=== PATIENT | female | born 1965 | race Caucasian/White ===

== ENCOUNTER 2016-10-23 16:08 | Emergency (ER) | payer OTHER ==
[2016-10-23 16:33] VITALS: BP 149/95; PULSE 98; RESP 18; TEMP 98.1; O2SAT 97
--- NOTE | 2016-10-23 17:04 | DX ---
Chest, PA and Lateral Views, at 4:41 p.m. Clinical History: 51-year-old female with a productive cough for 4 weeks, and an intermittent fever. Comparison Study: None. Findings: The cardiac and mediastinal silhouette is normal in size. There is mild central perihilar b ronchial wall thickening. There is no focal alveolar consolidation, pleural effusion, peripheral inte rstitial edema, or pneumothorax. The osseous structures are age-appropriate. Impression: Mild perihilar bronchitis, without a focal infiltrate.
[2016-10-23] MEDS ORDERED: DEXAMETHASONE 4 MG TAB PO ONE (17:55)
[2016-10-23] MEDS ORDERED: IBUPROFEN 600 MG TAB PO ONE (17:55)
[2016-10-23] MEDS ORDERED: AZITHROMYCIN 250 MG TAB PO ONE (17:56)
--- NOTE | 2016-10-23 18:09 | UCPHY ---
H & P Time Seen by Provider: 10/23/16 17:38 Patient Type: Established HPI/ROS: CHIEF COMPLAINT: Sore throat, ill for 4 weeks HISTORY OF PRESENT ILLNESS: 51-year-old female presents emergency department reporting worsening sore throat pain. Patient states she has had a cough with a mild sore throat, phlegm, headache for almost 4 weeks. Her throat discomfort began to increase last several days. She reports coughing at night and having a significant amount of phlegm the back of her throat. She has been taking Mucinex without much improvement. No fever. No sputum production when she coughs. No history of asthma although she does have an inhaler which she has used in the past for reactive airways disease. No nausea, vomiting, diarrhea, or urinary complaints. No fever, chills, chest pain, shortness of breath, palpitations, vomiting, diarrhea, urinary complaints, headache, lightheadedness. REVIEW OF SYSTEMS: Aside from elements discussed in the HPI, a comprehensive 10-point review of systems was reviewed and is negative. PAST MEDICAL HISTORY: Postmenopausal SOCIAL HISTORY: Nonsmoker. VITAL SIGNS: see nurse's notes. GENERAL: Well-developed, well-nourished, in no acute distress. HEENT: Atraumatic Eyes: PERRL, EOMI, no conjunctival injection. Ears: TM clear bilaterally. Nose: No discharge. Mouth: moist mucous membranes. Pharynx: Enlarged right tonsil, no exudates, positive erythema. No abscess. Uvula is midline. NECK: Supple, right submandibular adenopathy, no meningismus, no tenderness. Negative Kernig's and Brudzinski's. LUNGS: Clear to auscultation bilaterally, no wheezes, rhonchi or rales. CARDIAC: Regular rate and rhythm, no rubs, murmurs or gallops. ABDOMEN: Soft, nontender, nondistended. Benign. BACK: No CVA tenderness. EXTREMITIES: Normal, no edema, FROM. NEURO: Alert and oriented, grossly nonfocal. SKIN: Warm and dry, no rash. PSYCHIATRIC: Normal mentation, no agitation. Smoking Status: Never smoked Constitutional: Initial Vital Signs Temperature (C) 36.7 C 10/23/16 16:31 Heart Rate 98 10/23/16 16:31 Respiratory Rate 18 10/23/16 16:31 Blood Pressure 149/95 H 10/23/16 16:31 O2 Sat (%) 97 10/23/16 16:31 O2 Delivery Mode Room Air Allergies/Adverse Reactions: Cephalosporins Allergy (Intermediate, Verified 12/10/15 19:02) Vomiting Penicillins Allergy (Intermediate, Verified 12/10/15 19:02) Hives sulfamethoxazole [From Bactrim] Allergy (Intermediate, Verified 12/10/15 19:02) Hives trimethoprim [From Bactrim] Allergy (Intermediate, Verified 12/10/15 19:02) Hives Home Medications: Medication Instructions Recorded Albuterol [Proventil Inhaler HFA 1 - 2 puffs IH Q4H #1 mdi 10/23/16 (*)] Azithromycin [Zithromax] 250 mg PO DAILY #4 tab 10/23/16 HYDROcodone/HOMATROPINE HYCODA 1 tsp PO Q4-6PRN PRN #120 ml 10/23/16 [Hycodan Syrup (*)] Mucinex 10/23/16 Medical Decision Making ED Course/Re-evaluation: 51-year-old female presenting to the emergency department with 4 weeks of ongoing, waxing and waning, upper respiratory infection symptoms. She has been experiencing worsening sore throat discomfort over the last several days. Examination demonstrates enlarged right tonsil with exudate. Patient also has a cough that has been keeping her awake at night. She was placed on azithromycin. She was advised to drink plenty of fluids and get plenty of rest. She was also giving an albuterol meter dose inhaler to use for nighttime cough and was prescribed Hycodan cough syrup. Patient strep screen and influenza tests were negative. Differential Diagnosis: Differential diagnosis of the patient's symptom complex was considered including but not limited to viral upper respiratory infection, viral pharyngitis, strep pharyngitis, bacterial pharyngitis, peritonsillar abscess, tonsillitis, epiglottitis, influenza, and mononucleosis. - Data Points Laboratory Results: 10/23/16 10/23/16 Unknown 16:34 Influenza Typ A,B (DFA) NEGATIVE FOR FLU (NEGATIVE) Group A Strep Screen NEGATIVE (NEGATIVE) Group A Strep DNA Pending Medications Given: Discontinued Medications Azithromycin (Zithromax) 500 mg PO EDNOW ONE PRN Reason: Protocol Stop: 10/23/16 17:57 Last Admin: 10/23/16 18:00 Dose: 500 mg Dexamethasone (Decadron) 8 mg PO EDNOW ONE Stop: 10/23/16 17:56 Last Admin: 10/23/16 18:00 Dose: 8 mg Ibuprofen (Motrin) 600 mg PO EDNOW ONE Stop: 10/23/16 17:56 Last Admin: 10/23/16 18:00 Dose: 600 mg Departure - Departure Disposition: Home, Routine, Self-Care Clinical Impression: Tonsillitis Pharyngitis Qualifiers: Pharyngitis/tonsillitis etiology: other specified organisms Qualifier Code: ( J02.8) Acute pharyngitis due to other specified organisms Condition: Good Instructions: Tonsillitis (ED), Cold Symptoms (ED) Additional Instructions: 1. Please take the antibiotic as directed. 2. I recommend Ibuprofen (Motrin, Advil) or Naproxen Sodium (Aleve) for throat pain and anti-inflammatory effects. You may take either one, but do not take both. Your dose is: Ibuprofen 600 mg every 6-8 hours with food. OR Naproxen Sodium (Aleve) 220 mg every 12 hours. 3. Please consider using your meter dose inhaler for coughing especially at night. 4. You been given a prescription for Hycodan cough suppressant. You may use this at night. 5. Please drink plenty of fluids and get plenty of rest. Follow up with the primary care physician if you're not improving as expected with these treatments. Your rapid strep screen is negative. Your influenza is negative. Referrals: Catherine Gomez MD [Primary Care Provider] - As per Instructions Prescriptions: HYDROcodone/HOMATROPINE HYCODA [Hycodan Syrup (*)] 1 tsp PO Q4-6PRN PRN #120 ml PRN Reason: cough, pain Albuterol [Proventil Inhaler HFA (*)] 1 - 2 puffs IH Q4H #1 mdi Azithromycin [Zithromax] 250 mg PO DAILY #4 tab - PQRS PQRS Measurement: Not applicable
== END 2016-10-23 18:05 | disposition home or self-care (01) ==
LOC: CED 16:08
DX: J03.90 Acute tonsillitis, unspecified (principal)
CPT/HCPCS: 71020-PO; 87400-PO; 87880-PO; 99214-PO; G0463-PO

== ENCOUNTER 2018-06-21 16:27 | Emergency (ER) | payer OTHER ==
[2018-06-21] MEDS ORDERED: NS 1,000 ML IV ONE (16:45)
[2018-06-21] MEDS ORDERED: fentaNYL 100 MCG/2 ML INJ IVP ONE (16:45)
--- NOTE | 2018-06-21 17:10 | EDPHY ---
H & P Stated Complaint: " I might have a kidney stone." Time Seen by Provider: 06/21/18 16:34 HPI/ROS: CHIEF COMPLAINT: Right flank pain and mild right upper quadrant pain HISTORY OF PRESENT ILLNESS: This is a 53-year-old female states she was not feeling well last night. Her stomach was bothering her. She has a history of what she describes as irritable bowel disease with intermittent episodes of some right lower quadrant discomfort. She was not nauseous and had no vomiting last night. When she woke this morning she was having pain in the right flank area. Pain does not radiate into the groin. Does not radiate to the right lower quadrant, she has had no nausea or vomiting. No fever. She does report some discomfort when she takes a deep breath and also some discomfort in the right upper quadrant. She went to an urgent care, and they dipped her urine and told her there was blood and suggested that perhaps she was having a kidney stone. Patient has not had a history of kidney stones in the past. She has not had any urinary complaints such as urgency, frequency, or dysuria. No nausea or vomiting. Pain is not pleuritic. No cold or cough symptoms. Taking a deep breath actually sometimes alleviates the discomfort. Pain is worse with some movements. Does not radiate into her legs. She does have a history of back pain and reports this does not feel similar to her musculoskeletal back pain. No fever, chills, chest pain, shortness of breath, palpitations, vomiting, diarrhea, urinary complaints, headache, lightheadedness. REVIEW OF SYSTEMS: A comprehensive 10 system review of systems was reviewed and is otherwise negative aside from elements mentioned in the history of present illness. PAST MEDICAL HISTORY: "Irritable bowel". No pulmonary history. SOCIAL HISTORY: Here with her . Nonsmoker. VITAL SIGNS Reviewed by me. GENERAL: Well-developed, well-nourished, looks well. Some discomfort when she has to sit on the gurney or move about. HEENT: Atraumatic. Eyes: No icterus, no injection. Mouth: moist mucous membranes. No erythema or lesions. Neck: supple with no adenopathy. LUNGS: Clear to auscultation bilaterally, no wheezes, rhonchi or rales. CARDIAC: Regular rate and rhythm, no rubs, murmurs or gallops. ABDOMEN: Soft, very mild right upper quadrant discomfort to palpation. No guarding. Nondistended. Normal bowel sounds. BACK: Slight right CVA tenderness to deep palpation. No rash noted. EXTREMITIES: No trauma. No edema. Range of motion is normal throughout. NEURO: Alert and oriented, grossly nonfocal. SKIN: Warm and dry, no rash. PSYCHIATRIC: Normal mentation, no agitation. - Personal History LMP (Females 10-55): Post Menopausal Current Tetanus/Diphtheria Vaccine: Yes Current Tetanus Diphtheria and Acellular Pertussis (TDAP): Yes - Medical/Surgical History Hx Asthma: Yes Hx Chronic Respiratory Disease: No Hx Diabetes: No Hx Cardiac Disease: No Hx Renal Disease: No Hx Cirrhosis: No Hx Alcoholism: No Hx HIV/AIDS: No Hx Splenectomy or Spleen Trauma: No Other PMH: HTN, shingles, asthma, l hip problems - Social History Smoking Status: Never smoked Constitutional: Initial Vital Signs Temperature (C) 36.6 C 06/21/18 16:30 Heart Rate 90 06/21/18 16:30 Respiratory Rate 13 06/21/18 16:30 Blood Pressure 156/82 H 06/21/18 16:30 O2 Sat (%) 98 06/21/18 16:30 O2 Delivery Mode Room Air O2 (L/minute) 2 Allergies/Adverse Reactions: Cephalosporins Allergy (Intermediate, Verified 12/10/15 19:02) Vomiting Penicillins Allergy (Intermediate, Verified 12/10/15 19:02) Hives sulfamethoxazole [From Bactrim] Allergy (Intermediate, Verified 12/10/15 19:02) Hives trimethoprim [From Bactrim] Allergy (Intermediate, Verified 12/10/15 19:02) Hives Home Medications: Medication Instructions Recorded Albuterol [Proventil Inhaler HFA 1 - 2 puffs IH Q4H #1 mdi 10/23/16 (*)] Lisinopril 06/21/18 Medical Decision Making - Diagnostics Imaging Results: Imaging Impressions Abdomen/Pelvis CT 06/21/18 17:13 Impression: 1. No acute abdominopelvic process. 2. Severe fatty liver. 3. Mild heterogeneity of the gallbladder which is nondistended and which may represent small stones. 4. Degenerative changes of the left hip. 5. Colonic diverticulosis. Findings and recommendations discussed with Patt Riggs MD at 1759 hour, . ED Course/Re-evaluation: 53-year-old female presents reporting right upper quadrant abdominal discomfort , mild, and significant right flank discomfort. Patient was seen at Urgent Care reported that she had blood in her urine. There is a question whether not she has a kidney stone. Patient's point of care testing demonstrated largely unremarkable chemistries with the exception of a slightly elevated AST. Urinalysis demonstrates 2+ blood and 2+ leukocyte esterase. Microscopic is pending at the time of this discussion. CT scan without IV contrast: No kidney stone seen. No gallstones are visualized, although the patient has a fatty liver and contracted gallbladder. Patient was reexamined at 6:15 p.m.. Her pain has improved with the fentanyl. She received Toradol 30 mg IV. We discussed further evaluation to include ultrasound. Patient is comfortable following up for an outpatient ultrasound to rule out potential biliary colic. She does describe this pain occurring previously in the past. We also discussed possibility of constipation versus muscle spasm. Patient will follow up with her primary care physician. I advised her that the urine microscopic is pending at this time and will contact her if there are signs of an infection. Plan to discharge the patient with Flexeril for muscle spasm, instructions regarding constipation, and follow up with the primary care physician to consider ultrasound testing. Patient and her are comfortable with this plan. I believe this is a reasonable plan. Patient's only does not have an acute abdomen, no signs of kidney stone, sepsis, significant infectious process, or cholecystitis. Note: 9:30 p.m.: Patient's urine microscopic is available in demonstrates 15- 25 white cells per high-power field, trace epithelial cells, trace bacteria, and calcium oxalate crystals. I discussed this with the patient. On the patients CT scan and we can see no definitive stone or hydronephrosis. I encourage the patient to stay well-hydrated. She is allergic to a number of antibiotics and we have decided that we will wait until the culture results are available in order to treat the patient. She will call back to the emergency department at [phone] in 24 hours. I did encourage her to drink plenty of fluid, get plenty of rest, and return to the emergency department if her pain was worsening or if she develops a fever. Differential Diagnosis: Differential diagnosis for the patient's upper abdominal pain was considered including but not limited to cholecystitis, gastritis, peptic ulcers disease, and pancreatitis. Differential diagnosis of the patient's flank pain was considered including but not limited to musculoskeletal causes, kidney stone, pyelonephritis, shingles, and intra-abdominal causes such as diverticulitis and appendicitis. - Data Points Laboratory Results: Laboratory Results 06/21/18 17:02 06/21/18 06/21/18 06/21/18 17:50 17:08 17:02 WBC RBC Hgb POC Hgb 12.6 gm/dL gm/dL (12.6-16.3) Hct POC Hct 37 % L % (38-47) MCV MCH MCHC RDW Plt Count MPV Neut % (Auto) Lymph % (Auto) Wilkin % (Auto) Eos % (Auto) Baso % (Auto) Nucleat RBC Rel Count Absolute Neuts (auto) Absolute Lymphs (auto) Absolute Monos (auto) Absolute Eos (auto) Absolute Basos (auto) Absolute Nucleated RBC Immature Gran % Immature Gran # POC Sodium 142 mEq/L mEq/L (135-145) POC Potassium 4.0 mEq/L mEq/L (3.3-5.0) POC Chloride 107 mEq/L mEq/L (97-110) POC BUN 19 mg/dL mg/dL (7-23) POC Creatinine 0.8 mg/dL mg/dL (0.6-1.0) POC Glucose 99 mg/dL mg/dL (70-100) POC Total Bilirubin 0.5 mg/dL mg/dL (0.1-1.4) POC GGT 27 IU/L IU/L (5-65) POC AST 48 IU/L H IU/L (14-46) POC ALT 39 IU/L IU/L (9-52) POC Alk Phosphatase 69 IU/L IU/L (38-126) POC Total Protein 6.7 g/dL g/dL (6.3-8.2) POC Albumin 3.7 g/dL g/dL (3.5-5.0) POC Amylase 42 IU/L IU/L (30-110) Lipase 117 IU/L IU/L (23-300) Urine Color Urine Appearance Urine pH Ur Specific [place] Urine Protein Urine Ketones Urine Blood Urine Nitrate Urine Bilirubin Urine Urobilinogen Ur Leukocyte Esterase Urine RBC Urine WBC Ur Epithelial Cells Calcium Oxalate Crystal Urine Bacteria Urine Mucus Urine Glucose 06/21/18 06/21/18 17:02 17:02 WBC 7.26 10^3/uL 10^3/uL (3.80-9.50) RBC 5.25 10^6/uL 10^6/uL (4.18-5.33) Hgb 14.1 g/dL g/dL (12.6-16.3) POC Hgb Hct 43.6 % % (38.0-47.0) POC Hct MCV 83.0 fL fL (81.5-99.8) MCH 26.9 pg L pg (27.9-34.1) MCHC 32.3 g/dL L g/dL (32.4-36.7) RDW 13.9 % % (11.5-15.2) Plt Count 267 10^3/uL 10^3/uL (150-400) MPV 9.9 fL fL (8.7-11.7) Neut % (Auto) 63.1 % % (39.3-74.2) Lymph % (Auto) 25.1 % % (15.0-45.0) Wilkin % (Auto) 9.2 % % (4.5-13.0) Eos % (Auto) 1.7 % % (0.6-7.6) Baso % (Auto) 0.6 % % (0.3-1.7) Nucleat RBC Rel Count 0.0 % % (0.0-0.2) Absolute Neuts (auto) 4.59 10^3/uL 10^3/uL (1.70-6.50) Absolute Lymphs (auto) 1.82 10^3/uL 10^3/uL (1.00-3.00) Absolute Monos (auto) 0.67 10^3/uL 10^3/uL (0.30-0.80) Absolute Eos (auto) 0.12 10^3/uL 10^3/uL (0.03-0.40) Absolute Basos (auto) 0.04 10^3/uL 10^3/uL (0.02-0.10) Absolute Nucleated RBC 0.00 10^3/uL 10^3/uL (0-0.01) Immature Gran % 0.3 % % (0.0-1.1) Immature Gran # 0.02 10^3/uL 10^3/uL (0.00-0.10) POC Sodium POC Potassium POC Chloride POC BUN POC Creatinine POC Glucose POC Total Bilirubin POC GGT POC AST POC ALT POC Alk Phosphatase POC Total Protein POC Albumin POC Amylase Lipase Urine Color YELLOW Urine Appearance HAZY Urine pH 6.0 (5.0-7.5) Ur Specific [place] 1.027 (1.002-1.030) Urine Protein NEGATIVE (NEGATIVE) Urine Ketones NEGATIVE (NEGATIVE) Urine Blood 1+ H (NEGATIVE) Urine Nitrate NEGATIVE (NEGATIVE) Urine Bilirubin NEGATIVE (NEGATIVE) Urine Urobilinogen NEGATIVE EU EU (0.2-1.0) Ur Leukocyte Esterase 2+ H (NEGATIVE) Urine RBC 1-3 /hpf /hpf (0-3) Urine WBC 15-25 /hpf H /hpf (0-3) Ur Epithelial Cells TRACE /lpf /lpf (NONE-1+) Calcium Oxalate Crystal PRESENT /hpf /hpf (NONE-1+) Urine Bacteria TRACE /hpf H /hpf (NONE SEEN) Urine Mucus TRACE /lpf /lpf (NONE-1+) Urine Glucose NEGATIVE (NEGATIVE) Medications Given: Discontinued Medications Hydrocodone Bitart/Acetaminophen ([place] 5/325mg Prepack#6) 1 btl TAKEHOME EDNOW ONE Stop: 06/21/18 18:26 Last Admin: 06/21/18 18:37 Dose: 1 btl Cyclobenzaprine HCl (Flexeril 10 Mg Prepack#3) 1 btl TAKEHOME EDNOW ONE Stop: 06/21/18 18:26 Last Admin: 06/21/18 18:42 Dose: 1 btl Fentanyl (Sublimaze) 50 mcg IVP EDNOW ONE Stop: 06/21/18 16:46 Last Admin: 06/21/18 17:04 Dose: 50 mcg Sodium Chloride (Ns) 1,000 mls @ 0 mls/hr IV ONCE ONE; Wide Open PRN Reason: Protocol Stop: 06/21/18 16:46 Last Admin: 06/21/18 17:04 Dose: 1,000 mls Ketorolac Tromethamine (Toradol) 30 mg IVP EDNOW ONE Stop: 06/21/18 18:05 Last Admin: 06/21/18 18:09 Dose: 30 mg Point of Care Test Results: Chemistry 06/21/18 06/21/18 17:50 17:08 POC Sodium 142 mEq/L mEq/L (135-145) POC Potassium 4.0 mEq/L mEq/L (3.3-5.0) POC Chloride 107 mEq/L mEq/L (97-110) POC BUN 19 mg/dL mg/dL (7-23) POC Creatinine 0.8 mg/dL mg/dL (0.6-1.0) POC Glucose 99 mg/dL mg/dL (70-100) POC Total Bilirubin 0.5 mg/dL mg/dL (0.1-1.4) POC GGT 27 IU/L IU/L (5-65) POC AST 48 IU/L H IU/L (14-46) POC ALT 39 IU/L IU/L (9-52) POC Alk Phosphatase 69 IU/L IU/L (38-126) POC Total Protein 6.7 g/dL g/dL (6.3-8.2) POC Albumin 3.7 g/dL g/dL (3.5-5.0) POC Amylase 42 IU/L IU/L (30-110) ISTAT H&H 06/21/18 17:50 POC Hgb 12.6 gm/dL gm/dL (12.6-16.3) POC Hct 37 % L % (38-47) Urine Dip Collection Date 06/21/18 Collection Time 16:50 Specific [place] (1.002-1.030) 1.025 PH (5.0-7.5) 6.0 Leukocytes (Negative) 1+ Nitrites (Negative) Negative Protein (Negative) Negative Glucose (Negative) Negative Ketones (Negative) Negative Urobilnogen (0.2-1.0 EU) 0.2 Bilirubin (Negative) Negative Blood (Negative) 2+ Departure - Departure Disposition: Home, Routine, Self-Care Clinical Impression: Flank pain, Right upper quadrant pain Condition: Good Instructions: Hydrocodone/Acetaminophen (By mouth), Cyclobenzaprine (By mouth) , Constipation (ED), Flank Pain (ED) Additional Instructions: 1. You're urine microscopic examination is pending. We will contact you if there are signs of infection in your kidney. 2. I recommend that you follow up with her primary care physician and consider an ultrasound to evaluate for potential gallstone disease. 3. For your flank pain I suggest trying Flexeril, a muscle relaxant. 4. For the abdominal discomfort, I recommend beginning irregular regiment of laxatives to ensure no constipation. 5. For generalized discomfort, you may take Tylenol 1000 mg every 8 hr and ibuprofen 600 mg every 8 hr. You may take both of these at the same time. 6. For significant abdominal discomfort, you been given a prepack of hydrocodone. Please take 1 tablet every 6-8 hours. Please be aware that this contains Tylenol. Referrals: Catherine Gomez MD [Primary Care Provider] - As per Instructions
[2018-06-21] MEDS ORDERED: KETOROLAC 30 MG/1 ML SDV IVP ONE (18:04)
[2018-06-21] MEDS ORDERED: CYCLOBENZAPRINE 10MG PREPACK#3 BTL TAKEHOME ONE (18:25)
[2018-06-21] MEDS ORDERED: HYDROCOD/APAP 5/325 PREPACK#6 BTL TAKEHOME ONE (18:25)
[2018-06-21 18:47] VITALS: BP 120/75
[2018-06-21 19:09] LABS: PLATELET COUNT 267 10^3/uL (150-400)
== END 2018-06-21 18:49 | disposition home or self-care (01) ==
LOC: CED 16:27
DX: R10.11 Right upper quadrant pain (principal); E86.9 Volume depletion, unspecified; I10 Essential (primary) hypertension; J45.909 Unspecified asthma, uncomplicated
CPT/HCPCS: 74176-PO; 80076-PO; 82150-PO; 82435-PO; 82565-PO; 82947-PO; 84132-PO; 84295-PO; 84520-PO; 85014-PO; 96374; J1885; J3010

== ENCOUNTER 2018-10-02 07:55 | Inpatient (IN) | payer OTHER ==
--- NOTE | 2018-10-02 06:41 | PDHPUP ---
History & Physical Update H&P update statement: This history and physical update is based on an assessment of the patient which was completed after admission or registration (within 24 hours), but prior to the surgery/procedure. H&P update: H&P reviewed & patient examined, no change in patient's condition since H&P completed
[~2018-10-02 07:55] MED LIST: ROPIVACAINE 0.2% 80 MG, EPINEPHrine 0.2 MG, KETOROLAC TROMETHAMINE 30 MG in SYRINGE 0 ML IU ONE; TRANEXAMIC ACID 3,000 MG in NS (SYRINGE) 50 ML IRR ONE; TRANEXAMIC ACID 3,000 MG/50 ML BAG IRR ONE
[2018-10-02] MEDS ORDERED: ACETAMINOPHEN 325 MG TAB PO ONE (08:05)
[2018-10-02] MEDS ORDERED: FAMOTIDINE 20 MG TAB PO ONE (08:05)
[2018-10-02] MEDS ORDERED: LR 1,000 ML IV ONE (08:05)
[2018-10-02] MEDS ORDERED: LIDOCAINE 1% 2 ML INJ ID PRN (08:05)
[2018-10-02] MEDS ORDERED: DEXAMETHASONE 4 MG/ML VIAL IVP ONE (08:05)
[2018-10-02] MEDS ORDERED: ceFAZolin 2 GM/DEXTROSE 100 ML IV ONE (08:05)
[2018-10-02] MEDS ORDERED: LIDOCAINE 2% 100 MG/5 ML SYR ONE (08:48)
[2018-10-02] MEDS ORDERED: fentaNYL 100 MCG/2 ML INJ ONE ×2 (08:48→10:29)
[2018-10-02] MEDS ORDERED: PHENYLEPHRINE HCL 100 MCG/ML SYR ONE (08:48)
[2018-10-02] MEDS ORDERED: BUPIVACAINE/DEXTROSE 7.5MG/ML 2 ML SPINAL AMP SP ONE (08:48)
[2018-10-02] MEDS ORDERED: PROPOFOL/EMULSION 500 MG/50 ML BOTTLE IV ONE ×2 (08:48→11:03)
--- NOTE | 2018-10-02 09:00 | PDANEPAE ---
ANE History of Present Illness Left hip DJD, here for L REINALDO ANE Past Medical History - Cardiovascular History Hx Hypertension: Yes Hx Arrhythmias: No Hx Chest Pain: No Hx Coronary Artery / Peripheral Vascular Disease: No Hx CHF / Valvular Disease: No Hx Palpitations: No - Pulmonary History Hx COPD: No Hx Asthma/Reactive Airway Disease: No Hx Recent Upper Respiratory Infection: No Hx Oxygen in Use at Home: No Hx Sleep Apnea: No Sleep Apnea Screening Result - Last Documented: Negative Pulmonary History Comment: occasional mild asthma symptoms when is out in the cold - Neurologic History Hx Cerebrovascular Accident: No Hx Seizures: No Hx Dementia: No - Endocrine History Hx Diabetes: No Endocrine History Comment: had been on thyroid medication but has not taken for about 5 years - Renal History Hx Renal Disorders: No - Liver History Hx Hepatic Disorders: No - Neurological & Psychiatric Hx Hx Neurological and Psychiatric Disorders: No - Cancer History Hx Cancer: No - Congenital Disorder History Hx Congenital Disorders: No - GI History Hx Gastrointestinal Disorders: Yes Gastrointestinal History Comment: eats gluten free due to hx of irritable bowel - Other Health History Other Health History: wears glasses. wears a crack off person for teeth grinding - Chronic Pain History Chronic Pain: Yes (left hip and leg) - Surgical History Prior Surgeries: uterine fibroid removal. fibroid removal right breast. wisdom teeth extraction. colonoscopy ANE Review of Systems Review of Systems: - Exercise capacity METS (RN): 4 METS ANE Patient History - Allergies Allergies/Adverse Reactions: Cephalosporins Allergy (Verified 09/16/18 16:41) Vomiting latex Allergy (Verified 09/16/18 16:41) itching, reddness, skin irritation Penicillins Allergy (Verified 10/02/18 08:24) Hives Sulfa (Sulfonamide Antibiotics) Allergy (Verified 09/16/18 16:41) hives and itching - Home Medications Home Medications: Losartan Potassium [Cozaar 50 mg (*)] 100 mg PO DAILY20 09/11/18 [Last Taken 09/08] - NPO status NPO Since - Liquids (Date): 10/02/18 NPO Since - Liquids (Time): 07:00 NPO Since - Solids (Date): 10/01/18 NPO Since - Solids (Time): 22:00 - Smoking Hx Smoking Status: Never smoked - Family Anes Hx Family Hx Anesthesia Complications: none ANE Labs/Vital Signs - Vital Signs Blood Pressure: 123/73 Heart Rate: 77 Respiratory Rate: 18 O2 Sat (%): 95 Height: 162.56 cm Weight: 90.718 kg ANE Physical Exam - Airway Neck exam: FROM Mallampati Score: Class 2 Mouth exam: normal dental/mouth exam - Pulmonary Pulmonary: no respiratory distress - Cardiovascular Cardiovascular: regular rate and rhythym - ASA Status ASA Status: II ANE Anesthesia Plan Anesthesia Plan: GA with mask, spinal Total IV Anesthesia: Yes
[2018-10-02] MEDS ORDERED: MIDAZOLAM 2 MG/2 ML VIAL IVP ONE (09:49)
[2018-10-02] MEDS ORDERED: MIDAZOLAM 2 MG/2 ML VIAL ONE (09:51)
[2018-10-02] MEDS ORDERED: fentaNYL 100 MCG/2 ML INJ IVP PRN (11:13)
[2018-10-02] MEDS ORDERED: NALOXONE HCL 0.4 MG/ML INJ IVP PRN (11:13)
[2018-10-02] MEDS ORDERED: ACETAMINOPHEN 500 MG TAB PO PRN (11:13)
[2018-10-02] MEDS ORDERED: LR 500 ML IV PRN (11:13)
[2018-10-02] MEDS ORDERED: PROMETHAZINE HCL 25 MG/ML INJ IVP PRN ×2 (11:13→11:38)
[2018-10-02] MEDS ORDERED: ONDANSETRON 4 MG/2 ML VIAL IVP PRN ×2 (11:13→11:38)
[2018-10-02] MEDS ORDERED: MEPERIDINE 25 MG/0.5 ML AMP IVP PRN (11:13)
[2018-10-02] MEDS ORDERED: DIAZEPAM 5 MG/ML 1 ML SYR IVP PRN (11:13)
[2018-10-02] MEDS ORDERED: ALBUTEROL 3 ML DEYVIAL IH PRN (11:13)
[2018-10-02] MEDS ORDERED: HYDROmorphONE/DILAUDID 2 MG/ML INJ IVP PRN (11:13)
[2018-10-02] MEDS ORDERED: oxyCODONE IR 5 MG TAB PO PRN (11:13)
[2018-10-02] MEDS ORDERED: TEMAZEPAM 15 MG CAP PO PRN (11:38)
[2018-10-02] MEDS ORDERED: POLYETHYLENE GLYCOL 3350 17 GM PKT PO PRN (11:38)
[2018-10-02] MEDS ORDERED: METOCLOPRAMIDE 10 MG/2 ML VIAL IVP PRN (11:38)
[2018-10-02] MEDS ORDERED: DIPHENOXYLATE/ATROPINE LOMOTIL 1 TAB PO PRN (11:38)
[2018-10-02] MEDS ORDERED: MAGNESIUM HYDROXIDE 30 ML UDCUP PO PRN (11:38)
[2018-10-02] MEDS ORDERED: BISACODYL 10 MG SUPP PR PRN (11:38)
[2018-10-02] MEDS ORDERED: ONDANSETRON DISINTEGRATING 4 MG TAB PO PRN (11:38)
[2018-10-02] MEDS ORDERED: LACTULOSE 20 GM/30 ML UDCUP PO PRN (11:38)
[2018-10-02] MEDS ORDERED: PROMETHAZINE HCL 25 MG SUPPR PR PRN (11:38)
[2018-10-02] MEDS ORDERED: diphenhydrAMINE 25 MG CAP PO PRN (11:38)
--- NOTE | 2018-10-02 11:38 | POSTOPPROG ---
Post Op Note Date of Operation: 10/02/18 Surgeon: Steve Azul Intermediate Designer: jeison azul PA-C Anesthesiologist: dr. torres Anesthesia: Spinal Pre-op Diagnosis: left hip OA Post-op Diagnosis: same Indication: left hip pain Procedure: L REINALDO ant approach Findings: severe hip OA Inf/Abcess present in the surg proc area at time of surgery?: No EBL: 100-500
[2018-10-02] MEDS ORDERED: LR 1,000 ML IV SCH (12:00)
--- NOTE | 2018-10-02 12:09 | PDMN ---
Medical Necessity Medical necessity: Pt meets inpt criteria per MD order and [facility] S-560, Hip Arthroplasty, [facility] inpt only list. 53 y/o w/L hip OA, admitted for L REINALDO, ant approach, and post-op care.
[2018-10-02] MEDS: CYCLOBENZAPRINE 10 MG TAB PO PRN ×2 (12:34→23:25)
[2018-10-02] MEDS: oxyCODONE IR 5 MG TAB PO PRN ×4 (12:35→23:25)
[2018-10-02] MEDS: ACETAMINOPHEN 325 MG TAB PO SCH ×3 (12:35→23:24)
--- NOTE | 2018-10-02 14:36 | POSTANESTH ---
Post Anesthetic Evaluation Cardiovascular Status: Normal, Stable Respiratory Status: Normal, Stable Level of Consciousness/Mental Status: Can Participate in Eval Pain Control: Adequate, Prn Tx Ordered Nausea/Vomiting Control: Adequate, Prn Tx Ordered Complications Possibly Related to Anesthesia: None Noted (Moving bilateral lower extremeties and no questions or complaints)
[2018-10-02] MEDS: ceFAZolin 2 GM/DEXTROSE 100 ML IV SCH (17:54)
[2018-10-02] MEDS ORDERED: LOSARTAN POTASSIUM 50 MG TAB PO SCH (20:00)
[2018-10-02] MEDS: FAMOTIDINE 20 MG TAB PO SCH (20:26)
[2018-10-02] MEDS: ASPIRIN 81 MG CHEWABLE TAB PO SCH (20:26)
[2018-10-02] MEDS: SENNOSIDES/DOCUSATE SODIUM TAB PO SCH (20:26)
[2018-10-03] MEDS: ceFAZolin 2 GM/DEXTROSE 100 ML IV SCH (01:54)
[2018-10-03] MEDS: oxyCODONE IR 5 MG TAB PO PRN ×3 (05:27→12:59)
[2018-10-03] MEDS: ACETAMINOPHEN 325 MG TAB PO SCH ×2 (06:38→12:59)
--- NOTE | 2018-10-03 08:36 | SOAPPROG ---
SOAP Progress Note Assessment/Plan: Assessment: Patient is doing well POD 1 s/p L REINALDO Pain management: pain is well controlled on oral pain meds. VTE ppx: recommend aspirin 81 mg BID for 4 weeks, cont JESUS and SCDs Anemia: level is expected initially postop. Asymptomatic. Continue to monitor D/c planning: Patient has done better than anticipated and would like to be discharged to home today. Patient must be released from PT before discharge to home. postop urinary retention: straight cath'd yesterday, resolved today. Plan: 10/03/18 08:36 Subjective: Dayna is doing well today, denies SOB ,chest pain and n/v Objective: Vital Signs Temp Pulse Resp BP Pulse Ox 36.7 C 76 17 104/66 97 10/03/18 07:38 10/03/18 07:38 10/03/18 07:38 10/03/18 07:38 10/03/18 07:38 Laboratory Results 10/03/18 04:46 10/02/18 10/03/18 10/04/18 05:59 05:59 05:59 Intake Total 3825 Output Total 3400 500 Balance 425 -500 LLE: incision dressing is clean and dry, NVI, +pf/df ICD10 Worksheet Patient Problems: Problems Problem Status Onset Primary localized osteoarthritis of left hip Acute Tonsillitis Acute
--- NOTE | 2018-10-03 09:11 | GDS ---
DATE OF ADMISSION: 10/02/2018 ADMISSION DIAGNOSIS: Left hip osteoarthritis. DISCHARGE DIAGNOSIS: Left hip osteoarthritis. PROCEDURE: Left total hip arthroplasty. VTE PROPHYLAXIS: Recommend aspirin 81 mg p.o. daily for 4 weeks. BRIEF DESCRIPTION OF HOSPITAL STAY: Patient was admitted for an elective joint arthroplasty. The pa tamie tolerated the procedure well and has passed physical therapy. The patient was given appropriat e antibiotic prophylaxis and venous thromboembolism prophylaxis. The patient's pain was well control led on oral pain medication, patient was holding down food, and had urinated. Decision was made to d ischarge the patient. The patient was given post-operative prescriptions pre-operatively. PLAN: To follow up as scheduled with Dr. Aguilar's office in 3 weeks. /[id number]/MODL
[2018-10-03] MEDS: SENNOSIDES/DOCUSATE SODIUM TAB PO SCH (09:21)
[2018-10-03] MEDS: ASPIRIN 81 MG CHEWABLE TAB PO SCH (09:22)
[2018-10-03] MEDS: FAMOTIDINE 20 MG TAB PO SCH (09:22)
[2018-10-03 11:33] VITALS: BP 115/61
--- NOTE | 2018-10-03 12:58 | GOP ---
DATE OF OPERATION: 10/02/2018 SURGEON: Eduardo Aguilar MD OIL ANALYST: FAUSTINO Fink. PREOPERATIVE DIAGNOSIS: Left hip osteoarthritis. POSTOPERATIVE DIAGNOSIS: Left hip osteoarthritis. PROCEDURE PERFORMED: Total hip arthroplasty with x-ray. FINDINGS: ESTIMATED BLOOD LOSS: 200 cc. INDICATIONS: The patient has progressively worsening arthritis of the hip which has failed medical m anagement. The patient understands the treatment options including continued non-operative care and has selected surgical intervention. The patient has decided to undergo total hip arthroplasty via th e direct anterior approach, understanding the risks of the procedure including, but not limited to, n eurovascular injury, infection, persistent pain, component wear and loosening, deep venous thrombosis , pulmonary embolism, limb length inequality, hip instability (including dislocation), and intra-oper ative fractures. DESCRIPTION OF PROCEDURE: After proper identification of the patient including verification and igor ing the surgical site, the patient was brought to the operating room and placed in the supine positio n. All bony prominences were well padded. Anesthesia was induced without complication and intraveno us prophylactic antibiotics were administered prior to skin incision. The operative leg was placed in the Trumpf Arch table extension and the well leg in a Yellofin leg ho lder. The patient was prepped and draped in the usual sterile fashion. The C-arm was draped for int ra-operative fluoroscopy to check acetabular position, femoral component position including leg lengt h and femoral offset. Attention was then drawn to surgical exposure of the hip. An incision was made with a #10 Bard Pushpa r blade starting 3 cm lateral and 3 cm distal to the anterior superior iliac spine measuring 8-10 cm and coursing distally toward the greater trochanter. The skin and subcutaneous tissues were divided sharply down to the fascia pedrito. The fascia pedrito was incised in line with the skin incision exposing the underlying tensor fascia pedrito muscle. The muscle was bluntly elevated from the fascia and the f irst extracapsular Cobra retractor was placed laterally at the junction of the superior femoral neck and greater trochanter. The lateral femoral circumflex vessels were identified, cauterized, and divi ded with the Aquamantys bipolar cautery. The deep investing fascia of the TFL was divided to allow p deysi mobilization of the muscle preventing damage during the retraction. The reflected head of the rectus femoris muscle was elevated off the anterior hip capsule and a medial Cobra retractor was plac ed just proximal to the lesser trochanter. The anterior capsulotomy was made sharply from the superolateral acetabulum to the saddle junction of the superior femoral neck and greater trochanter, then coursing inferomedial towards the lesser troc hanter. The retractors were then placed in the intracapsular position for femoral neck osteotomy. C orresponding to pre-operative templating, the osteotomy was made with the oscillating saw carefully p rotecting the greater trochanter and soft tissues. The femoral head was removed from the acetabulum with a corkscrew and confirmed to be severely arthritic with exposed bone, deformity and osteophytes. Similar findings were confirmed in the acetabulum. The Arch table extension was then placed in 40 degrees external rotation. Attention was then drawn to the acetabular preparation. After placement of the anterior and posterio r Cobra retractors outside the labrum and intracapsular, the circumferential labrum was removed sharp ly. The foveal contents were then removed and hemostasis obtained with cautery. The first reamer selected was sized using the removed femoral head. Reaming began with medialization and then commenced in 2 mm increments at 45 degrees of abduction and 15 degrees of anteversion using fluoroscopic navigation. Reaming ceased 1 mm less than the definitive acetabular component and tk esponded to the pre-operative templating. The final acetabular component was inserted using fluorosc opy to achieve proper orientation yielding excellent purchase and stability in the acetabulum. The f inal acetabular liner was then placed and its seating confirmed. Attention was then turned to the femur. The Arch table extension was placed in extension and adducti on, delivering the osteotomized femoral neck into the wound. A 2-pronged femoral elevator was placed at the calcar and another at the tip of the greater trochanter. The posterolateral capsule was rele ased with cautery allowing mobilization of the femur lateral and anterior for preparation. The exter nal rotators were visualized and preserved. A curette and rongeur were used to open the starting poi nt for broaching. Serial broaching started with the #0 broach and ended with the broach that exhibit ed excellent fit in the proximal femur. A change in pitch during mallet strikes was accompanied by t he inability to advance the broach any further. The trial reduction was performed and fluoroscopic n avigation was utilized to check limb length. Adjustments were made to equalize limb length according ly. Additional cup fixation was obtained with a single screw. After the final trials were accepted they were removed and the wound was copiously lavaged. The femo ral component was seated to the same depth as the final broach and the femoral head was impacted onto the clean trunnion. The hip was then reduced for the final time and once more fluoroscopy was used to check that limb length equality was achieved. The wound was irrigated and closed in layers, the fascia pedrito with 2-0 Quill, the subcutaneous tissue with 2-0 Quill, and the skin with Dermabond. Sterile dressings were applied. Final sharps and spon ge counts were accurate. The patient was then transferred to a hospital bed and brought to the [facility] room in stable condition. IMPLANTS: Accolade II size 4, a 127 acetabular component, a Trident II 50 mm, liner is a Trident X3 32 mm, head is Biolox Delta 32 mm -4. One 6.5 mm 25 mm screw was used. /[id number]/MODL
== END 2018-10-03 13:31 | disposition home or self-care (01) | DRG 470 ==
LOC: F3N 07:55
PROVIDERS: ADMIT Orthopaedic Surgery; ATTEND Orthopaedic Surgery
PROC: 0SRB04Z Replacement of Left Hip Joint with Ceramic on Polyethylene Synthetic Substitute, Open Approach (ICD-10-PCS; principal; 2018-10-02 10:00)
DX: M16.12 Unilateral primary osteoarthritis, left hip (principal); I10 Essential (primary) hypertension; R33.9 Retention of urine, unspecified
CPT/HCPCS: 97110-GP; 97161-GP; C1713; J0171; J0690; J1100; J1885; J2001; J2250; J2370; J2704; J2795; J3010